=== PATIENT | male | born 1940 | race Caucasian/White ===

== ENCOUNTER 2019-07-30 13:13 | Emergency (ER) | payer MEDICARE ==
[~2019-07-30] VITALS: Ht 172.7 cm; Wt 73.2 kg
--- NOTE | 2019-07-30 13:19 | NUR ---
PT BIBRA 59 FROM HOME C/O GEN WEAKNESS "FOUND HIM SITTING OUTSIDE HIS APARTMENT" PT IS AAOX3, NOT IN RESPIRATORY DISTRESS, HOOKED TO REGISTERED NURSE RENAL, NOTED ELEVATED HEART RATE, KEPT RESTED AND COMFORTABLE, WILL CONTINUE TO MONITOR.
--- NOTE | 2019-07-30 13:25 | NUR ---
URINE SPECIMEN COLLECTED AND SENT TO LAB.
--- NOTE | 2019-07-30 13:32 | NUR ---
BLOOD DRAWNED AND SENT TO LAB.
--- NOTE | 2019-07-30 13:41 | NUR ---
SEEN AND EXAMINED BY
[2019-07-30] MEDS ORDERED: DILTIAZEM HCL 25 MG IV ONE (13:51)
[2019-07-30 13:52] LABS: BASOPHILS # (AUTO) 0.1 /CMM (0.0-0.2); BASOPHILS % (AUTO) 0.9 % (0.0-2.0); EOSINOPHILS % (AUTO) 0.3 % (0.0-6.0); HEMATOCRIT 41 % (39-51); HEMOGLOBIN 13.9 g/dL (13.5-17.5); LYMPHOCYTES # (AUTO) 0.7 /CMM (0.8-4.8); MEAN CORPUSCULAR HGB CONC 34 g/dl (31.0-36.0); MEAN CORPUSCULAR VOLUME 88 fL (80-96); MONOCYTES # (AUTO) 0.4 /CMM (0.1-1.30); MONOCYTES % (AUTO) 3.1 % (2.0-12.0); NEUTROPHILS # (AUTO) 10.8 /CMM (1.8-8.9); NEUTROPHILS % (AUTO) 89.7 % (43.0-81.0); PLATELET COUNT (AUTO) 194 /CMM (150-450); RED BLOOD CELL COUNT(AUTO) 4.68 MIL/uL (4.5-6.0); WHITE BLOOD COUNT (AUTO) 12.1 K/uL (4.3-11.0)
[2019-07-30 13:56] LABS: CALCIUM, SERUM 9.5 mg/dL (8.5-10.1); CARBON DIOXIDE 19 mmol/L (21-32); CHLORIDE 100 mmol/L (98-107); CREATININE 1.4 mg/dL (0.6-1.3); GLUCOSE 287 mg/dL (74-106); POTASSIUM 4.7 mmol/L (3.5-5.1); SODIUM SERUM 134 mmol/L (136-145); UREA NITROGEN, BLOOD 21 mg/dL (7-18)
[2019-07-30 13:58] LABS: APPEARANCE,URINE Clear (CLEAR); BILIRUBIN,URINE Negative (NEGATIVE); BLOOD, URINE Trace-intact Ery/uL (NEGATIVE); COLOR,URINE Yellow (YELLOW); KETONES,URINE 15 (NEGATIVE); LEUKOCYTE ESTERASE ,URINE Negative (NEGATIVE); NITRITE, URINE Negative (NEGATIVE); PROTEIN,URINE Negative (NEGATIVE); UGLUCOSE 500 MG/DL mg/dL (NEGATIVE); UROBILINOGEN,URINE 0.2 EU/dL (0.2)
[2019-07-30 13:59] LABS: BACTERIA,URINE Rare /HPF (None Seen); SQUAMOUS EPITHELIAL CELL,UR Rare /HPF (None Seen); WBC,URINE 0-2 /HPF (0-3)
[2019-07-30] MEDS ORDERED: IV NS 0.9% 500 ML BAG IV ONE (14:00)
[2019-07-30] MEDS ORDERED: DILTIAZEM HCL 25 MG IV IV ONE (14:00)
[2019-07-30 14:02] LABS: ALANINE AMINOTRANSFERASE 13 U/L (12-78); ALBUMIN 3.7 g/dL (3.4-5.0); ALCOHOL, BLOOD < 3 mg/dL (0-0); ALKALINE PHOSPHATASE 72 U/L (46-116); ASPARTATE AMINOTRANSFERASE 14 U/L (15-37); BILIRUBIN,DIRECT 0.2 mg/dL (0.0-0.2); BILIRUBIN,TOTAL 1.2 mg/dL (0.2-1.0); TOTAL PROTEIN, SERUM 7.7 g/dL (6.4-8.2)
[2019-07-30] MEDS ORDERED: INSULIN REGULAR, HUMAN 100 UNIT/ML 10 ML VIAL ONE (14:42)
--- NOTE | 2019-07-30 14:55 | NUR ---
PT IS WHEELED TO CT SCAN VIA [facility].
[2019-07-30] MEDS ORDERED: INSULIN REGULAR, HUMAN 100 UNIT/ML 10 ML VIAL IV ONE (15:00)
[2019-07-30 15:23] LABS: ABG BASE EXCESS -7.7 mmol/L; ABG OXYGEN SATURATION 60.7 % (92.0-98.5); ABG PCO2 36.8 mmHg (35.0-45.0); ABG PH 7.304 (7.350-7.450); ABG PO2 32.2 mmHg (75.0-100.0); COHb 0.6 % (0.5-1.5); MetHb 0.5 % (0.0-1.5); SITE, ABG LEFT ARM; VENT MODE, BG VENOUS BLOOD GAS
[2019-07-30 16:48] LABS: CALCIUM, SERUM 9.2 mg/dL (8.5-10.1); CARBON DIOXIDE 19 mmol/L (21-32); CHLORIDE 103 mmol/L (98-107); CREATININE 1.2 mg/dL (0.6-1.3); GLUCOSE 200 mg/dL (74-106); POTASSIUM 4.3 mmol/L (3.5-5.1); SODIUM SERUM 135 mmol/L (136-145); UREA NITROGEN, BLOOD 23 mg/dL (7-18)
--- NOTE | 2019-07-30 17:51 | NUR ---
CALLED FACUNDO (SAFETY ADVISOR) TO INFORM HER PT IS DISCHARGED AND READY TO BE PICKED UP. LEFT VOICEMAIL.
--- NOTE | 2019-07-30 17:55 | NUR ---
FACUNDO WILL PHOTOGRAPHY INSTRUCTOR THE PATIENT, ETA 30 MINS.
--- NOTE | 2019-07-30 18:26 | NUR ---
IV removed. Catheter intact and site benign. Pressure and 4x4 applied to site. No bleeding noted. Patient discharged to home in stable condition. Written and verbal after care instructions given. Patient verbalizes understanding of instruction.
[2019-07-30 18:27] VITALS: BP 133/81
== END 2019-07-30 18:28 | disposition home or self-care (01) ==
LOC: ER 13:15
DX: R53.1 Weakness (principal); I48.91 Unspecified atrial fibrillation; R73.9 Hyperglycemia, unspecified; I10 Essential (primary) hypertension; R00.0 Tachycardia, unspecified; R41.82 Altered mental status, unspecified
CPT/HCPCS: 36415; 36600; 70450; 80048 ×2; 80076; 80305; 80307; 81001; 84484; 85025; 93005; 96374; 96375; 99284; J1815; J3490; J7040; 81000-TC; G0480